=== PATIENT | male | born 1975 | race African-American/Black ===

== ENCOUNTER 2017-10-21 12:34 | Emergency (ER) | payer OTHER ==
[~2017-10-21] VITALS: Ht 175.3 cm; Wt 110.0 kg
[~2017-10-21 12:34] MED LIST: COUMADIN5 MG PO; DIFLUCAN100 MG PO; LOVENOX80 MG/0.8 SC; TOPROL XL25 MG PO
[2017-10-21 13:06] LABS: BASOPHIL (%) 0.4 % (0-1); EOSINOPHIL (%) 2.3 % (0-5); EOSINOPHIL COUNT 0.1 K/uL (0-0.3); HEMATOCRIT 49.3 % (38.0-50.0); HEMOGLOBIN 16.2 G/DL (12.5-16.6); IMMATURE GRANULOCYTE (%) 0.2 % (0.0-0.7); LYMPHOCYTE (%) 26.3 % (15-42); LYMPHOCYTE COUNT 1.5 K/uL (1.0-2.8); MCH 28.1 PG (29.0-34.0); MCHC 32.9 G/DL (30.0-36.0); MCV 85.6 FL (86-99); MONOCYTE (%) 7.5 % (3-12); MONOCYTE COUNT 0.4 K/uL (0-0.8); NEUTROPHIL (%) 63.3 % (45-76); NEUTROPHIL COUNT 3.6 K/uL (1.8-6.4); PLATELET COUNT 244 K/uL (156-360); RBC DIS.WIDTH-CV 12.5 % (11.8-14.6); RBC DIS.WIDTH-SD 39.1 % (39-53); RED BLOOD COUNT 5.76 M/uL (4.00-5.50); WHITE BLOOD COUNT 5.6 K/uL (4.1-10.2)
[2017-10-21 13:17] LABS: ALBUMIN 3.8 g/dL (3.2-4.8); CHLORIDE 105 mEq/L (99-109); POTASSIUM 4.7 mEq/L (3.7-5.4); SODIUM 140 mEq/L (136-147)
[2017-10-21 13:18] LABS: MAGNESIUM 2.4 mg/dL (1.3-2.7)
[2017-10-21 13:20] LABS: GLUCOSE 95 mg/dL (70-99); TOTAL PROTEIN 7.1 g/dL (6.4-8.3)
[2017-10-21 13:22] LABS: TOTAL BILIRUBIN 0.2 mg/dL (0.0-1.0)
[2017-10-21 13:23] LABS: ALKALINE PHOSPHATASE 55 IU/L (3-129)
[2017-10-21 13:24] LABS: GFR ESTIMATE (CALCULATED) > 59 mL/min/ (58.99-99999)
[2017-10-21 13:25] LABS: AST (GOT) 26 IU/L (2-34); UREA NITROGEN (BUN) 13 mg/dL (9-23)
[2017-10-21 13:26] LABS: ALT (GPT) 24 IU/L (3-49)
[2017-10-21 13:29] LABS: TROP-I INTERPRETATION NEGATIVE; TROPONIN-I < 0.01 ng/mL (0.0-0.30)
[2017-10-21 13:48] LABS: D-DIMER ELISA < 150.00 ng/mLDDU (<230)
[2017-10-21 14:33] VITALS: BP 120/86
== END 2017-10-21 14:35 ==
LOC: EME 12:34
PROVIDERS: Emergency Medicine
DX: I48.91 Unspecified atrial fibrillation (principal); R42 Dizziness and giddiness; R06.02 Shortness of breath; I10 Essential (primary) hypertension
CPT/HCPCS: 71045; 80053; 83735; 84484; 85025; 85379; 93005; J7040